=== PATIENT | female | born 1970 | race Caucasian/White ===

== ENCOUNTER 2022-03-29 20:47 | Emergency (ER) | payer OTHER ==
[2022-03-29 21:07] VITALS: BP 153/74; PULSE 95; TEMP 98; BMI 28.3
[2022-03-30] MEDS ORDERED: ACETAMINOPHEN 500 MG TABLET (FP) PO ONE (00:32)
[2022-03-30] MEDS ORDERED: METHOCARBAMOL 500 MG TABLET PO ONE (00:46)
[2022-03-30] MEDS ORDERED: METHOCARBAMOL 500 MG TABLET ONE (00:52)
[2022-03-30] MEDS ORDERED: ACETAMINOPHEN 500 MG TABLET (FP) ONE (00:53)
== END 2022-03-30 02:00 | disposition left against medical advice (07) ==
LOC: JER 20:47
DX: M79.602 Pain in left arm (principal)
CPT/HCPCS: 93005; 93010; 99284-25